=== PATIENT | male | born 1955 | race Caucasian/White ===

== ENCOUNTER 2018-02-01 23:14 | Emergency (ER) | payer MEDICAID, OTHER ==
[~2018-02-01] VITALS: Ht 188 cm; Wt 123.2 kg
[~2018-02-01 23:14] MED LIST: INSU100V30 SQ; LISI30TA39 PO; METH-603 PO; NPH,100I IM
[2018-02-01] MEDS ORDERED: dextrose 50%-water 50ml dispensing syringe IV ONE ×2 (23:28→23:30)
[2018-02-01] MEDS ORDERED: SAXA5TAB PO (23:42)
[2018-02-01] MEDS ORDERED: METO25TA6 PO (23:42)
[2018-02-01] MEDS ORDERED: LYR25C PO (23:42)
[2018-02-01] MEDS ORDERED: METF500T PO (23:42)
[2018-02-02 00:30] LABS: BASOPHILS % (AUTO) 0.2 % (0-1); EOSINOPHILS # (AUTO) 0.1 X10'3 (0-0.9); EOSINOPHILS % (AUTO) 1.2 % (0-6); HEMATOCRIT 37.1 % (42.0-52.0); HEMOGLOBIN 12.4 g/dl (14.0-17.9); LYMPHOCYTES # (AUTO) 0.5 X10'3 (1.1-4.8); LYMPHOCYTES % (AUTO) 5.8 % (21-51); MEAN CORPUSCULAR HEMOGLOBIN 28.7 PG (27.0-31.0); MEAN CORPUSCULAR HGB CONC 33.5 % (33.0-36.5); MEAN CORPUSCULAR VOLUME 85.7 FL (78-98); MEAN PLATELET VOLUME 9.9 FL (7.4-10.4); MONOCYTES # (AUTO) 0.5 X10'3 (0-0.9); MONOCYTES % (AUTO) 5.7 % (2-12); NEUTROPHILS % (AUTO) 87.1 % (42-75); PLATELET COUNT 133 X10'3 (140-440); RED BLOOD COUNT 4.33 X10'6 (4.70-6.10); RED CELL DISTRIBUTION WIDTH 14.5 % (11.5-14.5)
[2018-02-02 00:46] LABS: ALANINE AMINOTRANSFERASE 35 U/L (12-78); ALBUMIN 3.3 G/DL (3.4-5.0); ALBUMIN/GLOBULIN RATIO 0.8 (1.1-1.5); ALKALINE PHOSPHATASE 108 IU/L (46-116); ANION GAP 9 (8-16); ASPARTATE AMINO TRANSFERASE 43 U/L (10-37); BILIRUBIN,TOTAL 0.4 MG/DL (0.1-1.0); BLOOD UREA NITROGEN 22 MG/DL (7-18); BUN/CREATININE RATIO 26.2 (5.4-32.0); CALCIUM 8.8 MG/DL (8.5-10.1); CHLORIDE 105 MMOL/L (99-107); CREATININE 0.84 MG/DL (0.60-1.10); GLUCOSE 61 MG/DL (70-104); POTASSIUM 3.5 MMOL/L (3.5-5.1); SODIUM 141 MMOL/L (135-145); TOTAL CARBON DIOXIDE 26.7 MMOL/L (24-32); TOTAL PROTEIN 7.5 G/DL (6.4-8.2); eGFR > 90 ML/MIN
[2018-02-02 01:17] VITALS: BP 125/59
== END 2018-02-02 01:19 | disposition home or self-care (01) ==
LOC: ER 23:15
DX: E11.649 Type 2 diabetes mellitus with hypoglycemia without coma (principal); F15.10 Other stimulant abuse, uncomplicated; I10 Essential (primary) hypertension; G89.29 Other chronic pain; Z79.4 Long term (current) use of insulin; Z98.890 Other specified postprocedural states
CPT/HCPCS: 36415; 80053; 82948; 85025; 96374; 99284

== ENCOUNTER 2019-05-16 04:00 | Emergency (ER) | payer MEDICAID, OTHER ==
[~2019-05-16] VITALS: Ht 185.4 cm; Wt 75.1 kg
[~2019-05-16 04:00] MED LIST changes: -LISI30TA39 PO; +LYR25C PO; +METF500T PO; +METO25TA6 PO; +SAXA5TAB PO
[2019-05-16] MEDS ORDERED: normal saline 1000ML IV soln IVB ONE (04:20)
[2019-05-16 05:09] LABS: BASOPHILS % (AUTO) 0.6 % (0-1); EOSINOPHILS # (AUTO) 0.2 X10'3 (0-0.9); EOSINOPHILS % (AUTO) 2.8 % (0-6); HEMATOCRIT 37.4 % (42.0-52.0); HEMOGLOBIN 12.8 g/dl (14.0-17.9); LYMPHOCYTES # (AUTO) 1.2 X10'3 (1.1-4.8); LYMPHOCYTES % (AUTO) 18.3 % (21-51); MEAN CORPUSCULAR HEMOGLOBIN 29.4 PG (27.0-31.0); MEAN CORPUSCULAR HGB CONC 34.3 g/dL (33.0-36.5); MEAN CORPUSCULAR VOLUME 85.6 FL (78-98); MEAN PLATELET VOLUME 8.8 FL (7.4-10.4); MONOCYTES # (AUTO) 0.6 X10'3 (0-0.9); NEUTROPHILS # (AUTO) 4.6 X10'3 (1.8-7.7); NEUTROPHILS % (AUTO) 69.3 % (42-75); PLATELET COUNT 151 X10'3 (140-440); RED BLOOD COUNT 4.37 X10'6 (4.70-6.10); WHITE BLOOD COUNT 6.7 X10'3 (4.5-11.0)
[2019-05-16 05:18] LABS: ALANINE AMINOTRANSFERASE 40 U/L (12-78); ALBUMIN 3.2 G/DL (3.4-5.0); ALBUMIN/GLOBULIN RATIO 0.9 (1.1-1.5); ALKALINE PHOSPHATASE 114 IU/L (46-116); ANION GAP 8 (8-16); ASPARTATE AMINO TRANSFERASE 29 U/L (10-37); BILIRUBIN,TOTAL 0.4 MG/DL (0.1-1.0); BLOOD UREA NITROGEN 27 MG/DL (7-18); BUN/CREATININE RATIO 20.8 (5.4-32.0); CALCIUM 8.5 MG/DL (8.5-10.1); CHLORIDE 100 MMOL/L (99-107); GLUCOSE 385 MG/DL (70-104); MAGNESIUM 1.8 MG/DL (1.5-2.4); PHOSPHORUS 3.6 MG/DL (2.3-4.5); POTASSIUM 3.8 MMOL/L (3.5-5.1); SODIUM 134 MMOL/L (135-145); TOTAL CARBON DIOXIDE 25.7 MMOL/L (24-32); TOTAL PROTEIN 6.9 G/DL (6.4-8.2); eGFR 56 ML/MIN
[2019-05-16] MEDS ORDERED: NPH,100V SQ (05:30)
[2019-05-16 06:11] VITALS: BP 127/63
== END 2019-05-16 06:13 | disposition home or self-care (01) ==
LOC: ER 04:00
DX: E11.9 Type 2 diabetes mellitus without complications (principal); Z76.0 Encounter for issue of repeat prescription; I10 Essential (primary) hypertension; G89.29 Other chronic pain; F15.90 Other stimulant use, unspecified, uncomplicated; Z98.890 Other specified postprocedural states; Z91.041 Radiographic dye allergy status; Z79.4 Long term (current) use of insulin; Z79.899 Other long term (current) drug therapy
CPT/HCPCS: 36415; 80053; 82009; 82948; 83735; 84100; 85025; 99283; J7030; 96360

== ENCOUNTER 2021-03-11 21:08 | Emergency (ER) | payer MEDICAID ==
[~2021-03-11] VITALS: Ht 182.9 cm; Wt 100.0 kg
[~2021-03-11 21:08] MED LIST changes: +LOP25T PO; -METO25TA6 PO; +NPH,100V SQ
[2021-03-11 21:12] VITALS: BP 172/64
[2021-03-11] MEDS ORDERED: ketorolac trometh inj. 60 MG/2 ML VIAL IM ONE (22:50)
[2021-03-11] MEDS ORDERED: ketorolac trometh. 30mg/ml inj. IM ONE (23:00)
== END 2021-03-11 23:55 | disposition home or self-care (01) ==
LOC: ER 21:09
DX: S80.812A Abrasion, left lower leg, initial encounter (principal); S80.811A Abrasion, right lower leg, initial encounter; M54.9 Dorsalgia, unspecified; G89.29 Other chronic pain; I10 Essential (primary) hypertension; E11.9 Type 2 diabetes mellitus without complications; F15.90 Other stimulant use, unspecified, uncomplicated; Z86.14 Personal history of Methicillin resistant Staphylococcus aureus infection; Z98.890 Other specified postprocedural states; Z79.899 Other long term (current) drug therapy; Z79.4 Long term (current) use of insulin; W01.0XXA Fall on same level from slipping, tripping and stumbling without subsequent striking against object, initial encounter; Y93.89 Activity, other specified; Y92.89 Other specified places as the place of occurrence of the external cause; Y99.8 Other external cause status
CPT/HCPCS: 96372; 99284; J1885; 99283